=== PATIENT | female | born 1955 | race Caucasian/White ===

== ENCOUNTER → 2018-02-27 | Outpatient (CLI) | payer OTHER | END | disposition home or self-care (01) | LOC: US 06:41 | DX: K80.20 Calculus of gallbladder without cholecystitis without obstruction (principal) | CPT/HCPCS: 76700 ==

== ENCOUNTER → 2021-03-10 | Outpatient (CLI) | payer OTHER ==
--- NOTE | 2021-03-10 09:58 | KCIC ---
EXAM: Bilateral hands, 3 views. HISTORY: Pain. COMPARISON: None. FINDINGS: 3 views of both hands are obtained. There is no acute fracture, dislocation or subluxation. There is moderate bilateral first interphalangeal joint spurring. There is severe right and moderate left second distal interphalangeal joint and mild bilateral third and right fourth distal interphala ngeal joint spurring. IMPRESSION: 1. 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 2. 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 3. Mild bilateral third and right fourth distal interphalangeal joint osteoarthritis. Electronically signed by: Barbara Chowdhury MD (03/10/2021 9:55 AM) [id number]
--- NOTE | 2021-03-10 12:39 | KCIC ---
Bilateral digital screening mammograms with 3-D tomosynthesis: Reason for examination: Routine screening. No previous exams for comparison. New baseline. Bilateral mammograms in CC and oblique projections were obtained with 2-D imaging and 3-D tomosynthes is imaging on a Siemens Inspiration unit and reviewed on the workstation. Interpretation was made wit h the benefit of CAD. The skin and nipples show no abnormalities. No abnormal axillary lymph nodes are seen. The breast par enchyma shows scattered fatty and fibroglandular density. (Breast density: Category B.) There appear to be 2 small nodular densities at approximately the 3:00 B position of the right breast. The more me dial posterior nodule may represent a small focus of fat necrosis. Further evaluation with ultrasound is recommended. In the left breast, there is a nodule at the 3:00 C position with some asymmetric pa renchyma posterior to the nodule. Further evaluation with coned compression views and ultrasound is r ecommended. In the subareolar 3:00 position, there is also some asymmetric nodularity and further catie luation with ultrasound is recommended. At the 1:00 B position of the left breast, there is also a sm all cluster of microcalcifications and further evaluation with coned compression magnification views is recommended. Impression: Small nodular densities at the 2:00 B position of the right breast. Nodular density with some adjacent asymmetric parenchyma at the 3:00 C position of the left breast. Nodular asymmetry in the subareolar 3:00 position of the left breast. Clustered calcifications at the 1:00 B position of the left breast. Recommend further evaluation with bilateral breast ultrasound for the nodule seen bilaterally and lef t breast mammograms with coned compression magnification views of the calcifications at the 1:00 B po sition and coned compression views of the parenchymal asymmetry at the 3:00 C position. BI-RADS Category 0: Incomplete. Needs additional imaging evaluation. "Our facility is accredited by the [employer] Mammography [employer]." This patient's information has been entered into a reminder system for the patient to be notified wit h the results of her examination and a target date for the next mammogram. Electronically signed by: Raina Emmanuel MD (03/10/2021 12:36 PM) [email or web address]
== END ==
LOC: KCIC MAMMO 08:12
PROVIDERS: ATTEND Family Medicine
DX: Z12.31 Encounter for screening mammogram for malignant neoplasm of breast (principal); M19.042 Primary osteoarthritis, left hand; M19.041 Primary osteoarthritis, right hand; G89.29 Other chronic pain
CPT/HCPCS: 77063; 77067; 73130-50

== ENCOUNTER → 2021-04-04 | Outpatient (CLI) | payer OTHER ==
--- NOTE | 2021-04-04 16:04 | RAD ---
Left breast diagnostic digital mammograms: Reason for examination: Nodular densities on screening mammogram and left breast calcifications. Cone compression magnification views were obtained for calcifications at the 1:00 position and coned compression views were obtained in the 3:00 C and retroareolar positions There does appear to be a cluster calcifications at the 1:00 B position. DCIS cannot be excluded and further evaluation with stereotactic biopsy is recommended. Nodules persist in the 3:00 C and retroar eolar positions of the left breast. Further evaluation with ultrasound will follow. IMPRESSION: Clustered calcifications at the 1:00 B position. Cannot exclude DCIS and further evaluation with ster eotactic biopsy is recommended. Nodules at the 3:00 C retroareolar positions of the left breast. Ultrasound to follow. BI-RADS Category 0: Incomplete. Needs additional imaging evaluation. Bilateral breast ultrasound: Ultrasound examination of the breasts and axilla was performed bilaterally. In the right breast at the 3:00 position 8.5 cm from the nipple, there is a hypoechoic circumscribed lesion 6.7 x 5.4 mm in size which probably represents a small fibroadenoma. No abnormal appearing lym ph nodes are seen in the right axilla. In the left breast at the 3:00 position 12 cm from the nipple, there is a 1.3 cm fibrocystic lesion. In the retroareolar 12:00 position of the left breast however, there is a 2.1 cm irregularly marginat ed nodule with some posterior acoustic shadowing. Further evaluation with ultrasound-guided biopsy is recommended. IMPRESSION: Probable fibroadenoma at the 3:00 position of the right breast. 1.3 cm fibrocystic lesion at the 3:00 position of the left breast. 2.1 cm irregularly marginated nodule at the retroareolar 12:00 position of the left breast. Recommend ultrasound-guided biopsy. BI-RADS Category 4: Suspicious. These findings have been discussed with the patient and the patient's physician Dr. Shu Zuleta wi ll be notified about these findings at 3:55 PM on 04/04/2021. "Our facility is accredited by the [employer] Mammography [employer]." Electronically signed by: Raina Emmanuel MD (04/04/2021 4:02 PM) [email or web address]
== END ==
LOC: MAMMO 13:55
PROVIDERS: ATTEND Family Medicine
DX: N63.42 Unspecified lump in left breast, subareolar (principal); R92.8 Other abnormal and inconclusive findings on diagnostic imaging of breast
CPT/HCPCS: 77065; 76641-50

== ENCOUNTER → 2021-04-26 | Outpatient (CLI) | payer OTHER ==
[~2021-04-26] MED LIST: LIDOCAINE 1% Multi-Dose 20 ML VIAL. INJ ONE; LIDOCAINE 2%/EPI 1:100,000 20 ML VIAL. INJ ONE; LIDOCAINE WITH 8.4% SOD BICARB 3 ML DISP.SYRIN. INJ ONE; LIDOCAINE WITH 8.4% SOD BICARB 3 ML DISP.SYRIN. ONE
--- NOTE | 2021-04-26 10:30 | RAD ---
EXAM: Stereotactic left breast biopsy; specimen radiograph; post-biopsy clip placement; sonographic g uided left breast biopsy and clip placement; unilateral post-biopsy mammogram. HISTORY: 65-year-old female presents for sonographic guided biopsy of a lesion within the 12:00 retro areolar aspect of the left breast and clustered microcalcifications 1:00 position of the left breast demonstrated on a mammogram and sonogram performed 04/04/2021. TECHNIQUE AND FINDINGS: The procedures and their risks and benefits were discussed with the patient. Risks discussed included, but were not limited to, pain, infection, bleeding and need for repeat biop sy. The patient provided verbal and written consent. A timeout was performed. Sonographic imaging of the left breast was performed and the lesion of concern at the 12:00 position was identified. The skin in this location was sterilely prepped, draped and infiltrated with 1 percen t lidocaine. Multiple core samples were obtained through the lesion of concern and biopsy clip was ad vanced into the biopsy bed. Manual compression was maintained until hemostasis was achieved. A steril e bandage was placed. Subsequently, the patient was transferred to the mammography suite and the left breast was placed in a lateral medial compression. Images were obtained and the clustered calcifications of concern were l ocalized using stereotaxis. The skin overlying this region was then sterilely prepped and infiltrated with a few cc 1% lidocaine for local anesthesia. Deeper soft tissue anesthesia was administered with epinephrine in 1% lidocaine. The biopsy device was advanced and appropriate positioning was confirme d with additional images. Subsequently, multiple core biopsy samples were obtained with vacuum assistance. A plain radiograph o f the specimen was obtained, demonstrating inclusion of the calcifications of interest. Then, a post- biospy clip was advanced to the site of biopsy using the same guidance technique. A sterile bandage was placed, and the patient was transferred to the mammography suite for craniocaudal and mediolatera l oblique views. The post-biopsy mammogram was interpreted as a separate workstation and demonstrates immediate post-b iospy changes and biopsy clips in expected position. The patient tolerated the procedure without diff iculty and was discharged to home in stable condition with post-biospy care instructions. IMPRESSION: 1. Successful stereotactic biospy of clustered microcalcifications within the 1:00 position of the le ft breast and post-biopsy clip placement. 2. Successful sonographic guided biopsy of a hypoechoic lesion within the 12:00 retroareolar position of the left breast and post-biopsy clip placement. 3. An addendum to this report will be submitted when pathology results are available. Electronically signed by: Barbara Chowdhury MD (04/26/2021 10:27 AM) [id number]
--- NOTE | 2021-04-27 19:13 | PATHOLOGY ---
[facility] Accession Number: [id number] . 01 Material submitted: . PART A: breast - LEFT BREAST MASS 12 O'CLOCK RETROAREOLAR 2.1CM. Modifiers: left, 12:00, RETROAREOLAR PART B: breast - LEFT BREAST TISSUE. Modifiers: left . 01 Clinical history: . A: LEFT BREAST MASS 1200 RETROAREOLAR LEFT BREAST BIOPSY ULTRASOUND GUIDED OBTAINED: 835AM, FORMALIN 837AM B: LEFT BREAST CALCIFICATIONS STEREOTACTIC LEFT BREAST CALCIFICATIONS OBTAINED 9:45AM, FORMALIN 9:55AM ABNORMAL MANUEL . 02 Diagnosis: A. Breast tissue, left breast mass 12:00 retroareolar biopsy: - Stromal fibrosis with focal duct ectasia/cystic change and focal moderate/florid ductal epithelial hyperplasia. . B. Breast tissue, left breast calcifications stereotactic biopsy: - Ancient fibroadenoma with associated calcifications. LBQ 04/27/2021 1804 Local . 02 Comment: There is no atypia or evidence of malignancy. (JPM/db; 04/27/2021) . 02 Electronically signed: . Ambrose Calvert MD, Pathologist NPI- [id number] . 01 Gross description: . A. The specimen is received in formalin, labeled "Wiedenmann, Carly and LT breast 12:00 retroareolar" and per the requisition "left breast mass 12:00 retroareolar". It consists of multiple roca-yellow irregular to cylindrical soft tissue fragments ranging from 0.2-1.7 cm in greatest dimension. The specimen is entirely submitted between sponges in A1. Time obtained: 8:35 AM Time in formalin: 8:37 AM Total time in formalin: 14 hours 3 minutes . B. The specimen is received in formalin, labeled "Wiedenmann, Carly and LT breast calcifications" and per the requisition "left breast tissue". It consists of multiple yellow fatty soft tissue segments measuring 3.0 x 2.5 x 0.6 cm in aggregate. The specimen is placed in a biopsy bag and entirely submitted in B1 through B2. Time obtained: 9:45 AM Time in formalin: 9:55 AM Total time in formalin: 13 hours 45 minutes (MRF; 04/26/2021) MFE/MFE 04/26/2021 [facility] . 02 Pathologist provided ICD-10: N60.32, N60.42, N62, D24.2 . 02 CPT . 564013, [id number] Specimen Comment: A courtesy copy of this report has been sent to [phone] Specimen Comment: Report sent to DR. MENDOZA / DR PALMER Specimen Comment: Report sent to Specimen Comment: A duplicate report has been generated due to demographic updates. Performed at: 01 [facility] [address], [place] [id number] MD Juarez Paulino MD Phone: [phone] Performed at: 02 [facility] [address] [place], [place] [id number] MD Ambrose Calvert MD Phone: [phone]
== END | disposition home or self-care (01) ==
LOC: US 08:24
PROVIDERS: ATTEND Family Medicine
DX: N63.22 Unspecified lump in the left breast, upper inner quadrant (principal); R92.8 Other abnormal and inconclusive findings on diagnostic imaging of breast; Z79.899 Other long term (current) drug therapy
CPT/HCPCS: 19081; 19083; 77065; A4648; J3490